=== PATIENT | female | born 1990 | race Caucasian/White ===

== ENCOUNTER 2017-05-30 19:01 | Emergency (ER) | payer OTHER ==
[~2017-05-30] VITALS: Ht 157.5 cm; Wt 63.5 kg
[~2017-05-30 19:01] MED LIST: CIPRO500 MG PO; PYRIDIUM100 M1 PO
[2017-05-30] MEDS ORDERED: BIRTH CONTROL PILL (19:13)
[2017-05-30 19:34] LABS: ABSOLUTE BASOPHILS 0.1 thou/uL (0.0-0.2); ABSOLUTE LYMPHOCYTES 2.7 thou/uL (0.8-5.3); ABSOLUTE MONOCYTES 0.6 thou/uL (0.0-1.2); ABSOLUTE NEUTROPHILS 5.1 thou/uL (1.6-8.1); BASOPHILS 0.8 %; EOSINOPHILS 0.6 %; HEMATOCRIT 41.2 % (37.0-47.0); HEMOGLOBIN 14.7 gm/dL (12.0-15.0); LYMPHOCYTES 32.1 %; MCHC 35.6 g/dL (28.0-37.0); MCV 84.2 fL (80.0-100.0); MONOCYTES 6.8 %; MPV 8.3 fl. (7.2-11.1); NUCLEATED RBCS 0 /100WBC; PLATELET COUNT* 316 thou/uL (150-400); POLYS 59.7 %; RBC 4.89 mil/uL (4.20-5.00); RDW-CV 12.4 % (10.5-14.5); WBC 8.5 thou/uL (4.0-11.0)
[2017-05-30 19:40] LABS: ANION GAP 11 mmol/L (7-16); BUN 12 mg/dL (7-18); CALCIUM 9.1 mg/dL (8.5-10.1); CHLORIDE 105 mmol/L (98-107); CO2 27 mmol/L (21-32); CREATININE 0.8 mg/dL (0.6-1.3); GLUCOSE 88 mg/dL (70-99); POTASSIUM 3.2 mmol/L (3.5-5.1); SODIUM 143 mmol/L (136-145)
[2017-05-30 19:51] LABS: ALBUMIN 4.1 g/dL (3.4-5.0); ALKALINE PHOSPHATASE 52 U/L (46-116); NT-PRO BRAIN NAT PEPTIDE 23 pg/mL (<300); SGOT 16 U/L (15-37); SGPT 27 U/L (30-65); TOTAL BILIRUBIN 0.5 mg/dL (<0.1-1.0); TROPONIN-I LEVEL <0.06 ng/mL (<0.06)
[2017-05-30 20:25] LABS: URINE BILIRUBIN NEGATIVE (Negative); URINE BLOOD NEGATIVE (Negative); URINE CLARITY CLEAR; URINE COLOR STRAW; URINE GLUCOSE-RANDOM NEGATIVE (Negative); URINE KETONES NEGATIVE (Negative); URINE LEUKOCYTES-REFLEX NEGATIVE (Negative); URINE NITRITE-REFLEX NEGATIVE (Negative); URINE PROTEIN NEGATIVE (Negative); URINE UROBILINOGEN 0.2 E.U./dl (0.2-1.0)
[2017-05-30] MEDS ORDERED: KLOR-CON 1010 MEQ PO (20:50)
[2017-05-30 21:02] VITALS: BP 126/80
--- NOTE | 2017-05-31 14:58 | EKG ---
[place] [address] ELECTROCARDIOGRAM REPORT Name: STANFORD OVIEDO Room: [facility]#: [id number] Admission: 05/30/17 Attend Phys: Discharge: 05/30/17 Date of : 88 Report #: [id number] THIS REPORT FOR: //name// [facility] ED Test Date: 2017-05-30 Test Time: 19:09:23 Pat Name: STANFORD OVIEDO Department: Room: Gender: F [employer]: JUSTIN : 1990 Requested By: Eusebia Elmore Order Number: [id number] MD: Woody Salmon Measurements Intervals [place] Rate: 101 P: PA: QRS: 70 QRSD: 86 T: 52 QT: 342 QTc: 444 Interpretive Statements Sinus tachycardia No previous ECG available for comparison Electronically Signed On 05-31-2017 14:58:05 CDT by Woody Salmon [email or web address] <ELECTRONICALLY SIGNED> By: Woody Salmon MD, [facility] 05/31/17 1458 1909 1909 Woody Salmon MD, FACC /EPI
== END 2017-05-30 21:04 | disposition home or self-care (01) ==
LOC: M.ERS 19:01
PROVIDERS: Physician Assistant
DX: R06.00 Dyspnea, unspecified (principal); E87.6 Hypokalemia

== ENCOUNTER → 2018-05-07 | Outpatient (CLI) | payer OTHER ==
[~2018-05-07] MED LIST changes: +BIRTH CONTROL PILL; +KLOR-CON 1010 MEQ PO
[2018-05-07 10:35] LABS: ABSOLUTE LYMPHOCYTES 1.3 thou/uL (0.8-5.3); ABSOLUTE MONOCYTES 0.4 thou/uL (0.0-1.2); ABSOLUTE NEUTROPHILS 5.5 thou/uL (1.6-8.1); BASOPHILS 0.6 %; EOSINOPHILS 0.5 %; HEMATOCRIT 39.2 % (37.0-47.0); HEMOGLOBIN 13.4 gm/dL (12.0-15.0); LYMPHOCYTES 18.1 %; MCH 29.7 pg (26.0-34.0); MCHC 34.2 g/dL (28.0-37.0); MCV 86.8 fL (80.0-100.0); MONOCYTES 5.4 %; MPV 7.9 fl. (7.2-11.1); NUCLEATED RBCS 0 /100WBC; PLATELET COUNT* 272 thou/uL (150-400); POLYS 75.4 %; RBC 4.52 mil/uL (4.20-5.00); RDW-CV 12.7 % (10.5-14.5); WBC 7.3 thou/uL (4.0-11.0)
[2018-05-07 11:20] LABS: CALCIUM 8.5 mg/dL (8.5-10.1); CREATININE 0.7 mg/dL (0.6-1.3); POTASSIUM 3.9 mmol/L (3.5-5.1); TOTAL BILIRUBIN 0.6 mg/dL (<0.1-1.0); TOTAL PROTEIN 7.3 g/dL (6.4-8.2)
== END ==
LOC: M.LAB 10:12
PROVIDERS: Family Medicine
DX: I83.813 Varicose veins of bilateral lower extremities with pain (principal); R61 Generalized hyperhidrosis

== ENCOUNTER 2019-03-03 00:53 | Emergency (ER) | payer OTHER ==
[~2019-03-03] VITALS: Ht 157.5 cm; Wt 72.6 kg
[2019-03-03] MEDS ORDERED: ZOFRAN ODT4 MG SUBLING ×2 (01:22→01:57)
[2019-03-03 01:23] LABS: HEMATOCRIT 39.3 % (37.0-47.0); HEMOGLOBIN 13.4 gm/dL (12.0-15.0); MCH 29.1 pg (26.0-34.0); MCHC 34.1 g/dL (28.0-37.0); MCV 85.5 fL (80.0-100.0); MPV 8.2 fl. (7.2-11.1); NUCLEATED RBCS 0 /100WBC; PLATELET COUNT* 285 thou/uL (150-400); RBC 4.59 mil/uL (4.20-5.00); RDW-CV 12.5 % (10.5-14.5); WBC 12.6 thou/uL (4.0-11.0)
[2019-03-03 01:39] LABS: URINE BILIRUBIN NEGATIVE (Negative); URINE BLOOD NEGATIVE (Negative); URINE CLARITY CLEAR; URINE COLOR YELLOW; URINE GLUCOSE-RANDOM NEGATIVE (Negative); URINE KETONES NEGATIVE (Negative); URINE LEUKOCYTES-REFLEX NEGATIVE (Negative); URINE NITRITE-REFLEX NEGATIVE (Negative); URINE PROTEIN TRACE (Negative); URINE SPECIFIC GRAVITY 1.015 (1.005-1.030)
[2019-03-03 01:48] LABS: CALCIUM 7.3 mg/dL (8.5-10.1); CREATININE 0.8 mg/dL (0.6-1.3); POTASSIUM 3.9 mmol/L (3.5-5.1)
[2019-03-03 01:52] LABS: ALBUMIN 3.8 g/dL (3.4-5.0); TOTAL BILIRUBIN 0.6 mg/dL (<0.1-1.0); TOTAL PROTEIN 6.8 g/dL (6.4-8.2)
[2019-03-03 02:04] LABS: ABSOLUTE LYMPHOCYTES 0.6 thou/uL (0.8-5.3); ABSOLUTE MONOCYTES 0.6 thou/uL (0.0-1.2); ABSOLUTE NEUTROPHILS 11.3 thou/uL (1.6-8.1); PLATELET ESTIMATE ADEQUATE
[2019-03-03 02:09] VITALS: BP 101/44
== END 2019-03-03 02:10 | disposition home or self-care (01) ==
LOC: M.ERS 00:53
PROVIDERS: Family Medicine
DX: R11.2 Nausea with vomiting, unspecified (principal); R10.13 Epigastric pain

== ENCOUNTER 2019-12-30 15:09 | Emergency (ER) | payer OTHER ==
[~2019-12-30] VITALS: Ht 157.5 cm; Wt 81.7 kg
[~2019-12-30 15:09] MED LIST changes: +ZOFRAN ODT4 MG SUBLING
[2019-12-30] MEDS ORDERED: MIRENA1 EACH CERVICAL (15:21)
[2019-12-30 15:52] LABS: INFLUENZA A ANTIGEN Negative (Negative); INFLUENZA B ANTIGEN Negative (Negative)
[2019-12-30] MEDS ORDERED: ZPAK PO (15:56)
[2019-12-30] MEDS ORDERED: VENTOLIN HFA 1818 GM INH (15:56)
[2019-12-30] MEDS ORDERED: PREDNISONE 20 M20 MG PO (15:56)
[2019-12-30 16:09] VITALS: BP 121/70
== END 2019-12-30 16:10 | disposition home or self-care (01) ==
LOC: M.ERS 15:09
PROVIDERS: Nurse Practitioner Family
DX: B34.9 Viral infection, unspecified (principal); Z20.828 Contact with and (suspected) exposure to other viral communicable diseases; Z90.89 Acquired absence of other organs; Z79.899 Other long term (current) drug therapy